=== PATIENT | female | born 1975 | race Caucasian/White ===

== ENCOUNTER → 2017-10-21 16:20 | Outpatient (CLI) | payer OTHER, SELFPAY ==
--- NOTE | 2017-10-21 16:24 | RAD_ITS ---
STUDY: X-RAY - ACUTE ABDOMINAL SERIES REASON FOR EXAM: Female, 42 years old. Abdominal pain. TECHNIQUE: Single view of the chest. Supine, and erect view(s) of the abdomen were obtained. COMPARISON: None. FINDINGS: The lungs are clear and expanded. Normal size heart. Normal mediastinum and sarita. Normal visualized pulmonary arteries. Normal visualized aortic arch and descending thoracic aorta. There is a non-specific bowel gas pattern. Moderate fecal retention. The soft tissue structures of the abdomen and pelvis are unremarkable. Normal visualized osseous structures. RAD/Acute Abdomen Inc Chest IMPRESSION: Normal x-ray examination of the chest, abdomen, and pelvis. Electronically Signed: Giles Gutierrez MD at 9:53 EDT , Service support ,
== END ==
PROVIDERS: Family Provider Family Medicine; PCP Family Medicine; Visit Provider Family Medicine
DX: R10.9 Unspecified abdominal pain (principal)
CPT/HCPCS: 74022

== ENCOUNTER → 2018-05-05 11:08 | Outpatient (CLI) | payer OTHER, SELFPAY ==
--- NOTE | 2018-05-05 11:30 | BRBX_PTH ---
PATIENT: PING HALL LOC: [facility] U#:[id number] AGE/SX: 50/F ROOM: RE05/05/[address]: Dr. Renetta Flores MD : 1975 BED: DIS: SPEC #: [id number] RECD: 05/05/18 13:08 STATUS: CORAL HELGA #: [id number] JAYMIE: 05/05/18 11:[address]: Renetta Flores DEPT: SURGICAL PATHOLOGY RECD BY: David Matute ENTERED: 05/05/18 13:31 SP TYPE: BREAST BX OTHR DR: Dr. Juan Neal MD Tissues: Left breast, NOS Procedures: Surgery Specimen Level IV HEADER OPERATION: Left breast stereotactic biopsy PRE-OP DIAGNOSIS: Left breast calcifications superior lateral position TISSUE SUBMITTED: Left breast core tissue ISCHEMIC TIME: 1 minute FIXATION TIME: 8 hours MICROSCOPIC DIAGNOSIS Left breast, superior lateral calcifications, stereotactic core biopsy: Fibrocystic changes, adenosis and intraductal hyperplasia without atypia. Negative for malignancy. Focal microcalcifications. DANAE:kari 05/06/18 COMMENT Correlation with clinical, radiologic findings and appropriate follow up are necessary. MICROSCOPIC DESCRIPTION Slides are reviewed. GROSS DESCRIPTION Received is one container labeled with the patient's name and not further designated. The specimen consists of multiple elongated fragments of ponce-yellow fibroadipose tissue that in aggregate measure 5 x 3 x 0.3 cm. The entire specimen is submitted in one cassette. / DANAE:kari 05/05/18 TC:4 CPT: 75104
--- NOTE | 2018-05-05 12:52 | PCM.OPRPT ---
Report of Operation Date of Procedure: 05/05/18 Pre-Operative Diagnosis: abnormal calcifications on left breast mammograms Post-Operative Diagnosis: same Surgery/Procedure Performed:: left stereotactic breast biopsy Description of Surgical Findings:: abnormal calcifications of left breast Type of Anesthesia:: Local - 1% xylocaine Anesthesiologist: none Specimen's removed: left breast tissue Estimated Blood Loss (mL): < 1 ml Fluids Replaced: none Description of Procedure: After informed consent was given, the patient was brought into the breast biopsy suite. Appropriate time out protocol was followed. She was then placed in the prone position on the stereotactic biopsy table. The patient?s left breast was then placed within the opening hole at the head of the table. A camera prototyping engineer compression mammogram was then obtained in the lateral view. The abnormal calcifications were localized within the biopsy aperture. Stereo pictures of the lesion were then taken for XYZ coordinates. The Mammotome biopsy stylus was then positioned where it would be entering into the patient?s breast. The skin at this site was then cleansed with a surgical skin preparation. The skin and subcutaneous tissues at this site were then infiltrated with 1% xylocaine. A small skin incision was made with an 11 blade scalpel. The biopsy stylus was then positioned into the patient?s breast at the proper coordinates of depth. Using the Mammotome vacuum-assist device, several core samples of breast tissue were obtained. A specimen mammogram was the obtained and revealed that the calcifications were within the specimen. A hemostatic marker clip was then placed into the biopsy cavity and a camera prototyping engineer film revealed that it was properly deployed. The patient was then placed in the supine position and pressure was applied to the breast until no active bleeding was noted. Steristrips were applied to reapproximate the skin. A unilateral mammogram in the CC and MLO view were then taken which revealed that the marker clip was in the same area as the previous suspicious lesion. The patient tolerated the procedure well and was discharged from the breast biopsy suite in good condition. - Complications none noted
--- NOTE | 2018-05-05 12:56 | OP.PCM_ITS ---
Report of Operation Date of Procedure: 05/05/18 Pre-Operative Diagnosis: abnormal calcifications on left breast mammograms Post-Operative Diagnosis: same Surgery/Procedure Performed:: left stereotactic breast biopsy Description of Surgical Findings:: abnormal calcifications of left breast Type of Anesthesia:: Local - 1% xylocaine Anesthesiologist: none Specimen's removed: left breast tissue Estimated Blood Loss (mL): < 1 ml Fluids Replaced: none Description of Procedure: After informed consent was given, the patient was brought into the breast biopsy suite. Appropriate time out protocol was followed. She was then placed in the prone position on the stereotactic biopsy table. The patient?s left breast was then placed within the opening hole at the head of the table. A coke handling supervisor compression mammogram was then obtained in the lateral view. The abnormal calcifications were localized within the biopsy aperture. Stereo pictures of the lesion were then taken for XYZ coordinates. The Mammotome biopsy stylus was then positioned where it would be entering into the patient?s breast. The skin at this site was then cleansed with a surgical skin preparation. The skin and subcutaneous tissues at this site were then infiltrated with 1% xylocaine. A small skin incision was made with an 11 blade scalpel. The biopsy stylus was then positioned into the patient?s breast at the proper coordinates of depth. Using the Mammotome vacuum-assist device, several core samples of breast tissue were obtained. A specimen mammogram was the obtained and revealed that the calcifications were within the specimen. A hemostatic marker clip was then placed into the biopsy cavity and a coke handling supervisor film revealed that it was properly deployed. The patient was then placed in the supine position and pressure was applied to the breast until no active bleeding was noted. Steristrips were applied to reapproximate the skin. A unilateral mammogram in the CC and MLO view were then taken which revealed that the marker clip was in the same area as the previous suspicious lesion. The patient tolerated the procedure well and was discharged from the breast biopsy suite in good condition. - Complications none noted
== END ==
PROVIDERS: Family Provider Family Medicine; PCP Family Medicine; Referring Provider Surgery; Visit Provider Surgery
DX: N60.22 Fibroadenosis of left breast (principal); N62 Hypertrophy of breast
CPT/HCPCS: 19081; 88305; J7050; A4648

== ENCOUNTER 2019-09-10 13:48 | Day surgery (SDC) | payer OTHER, SELFPAY ==
--- NOTE | 2019-09-10 08:08 | HP.PCM_ITS ---
- Problem List (1) Menorrhagia Status: Acute (2) Endometrial polyp Status: Acute History Date of Admission: 09/10/19 History of this : This is a 44 year-old with a history of menorrhagia with irregular cycle. She h ad a pelvic ultrasound that showed a normal-sized uterus with a 2 cm fibroid, and the relationship of the fibroid with the endometrium was stated to not be clear but it could possibly be submucosal. Her endometrium measured 1.6 cm. She had an endometrial biopsy showing an endometrial polyp and non-polyp benign proliferative endometrium. A Mirena IUD was unable to be placed in the office due to significant cervical stenosis. She desired Mirena IUD placement for menorrhagia. Medical History: Medical History (Last Updated 09/10/19 @ 08:10 by Josy Matos DO) History of drainage of abscess Z98.890 IBS (irritable bowel syndrome) K58.9 Surgical History: Surgical History (Last Updated 09/10/19 @ 08:10 by Josy Matos DO) History of appendectomy Z90.49 History of breast biopsy Z98.890 History of colonoscopy Z98.890 History of tubal ligation Z98.51 Allergies latex Allergy (Verified 09/04/19 09:59) Rash Home Medications: Home Medications Omeprazole [Prilosec] 20 mg PO PRN PRN 09/04/19 Venlafaxine XR [Effexor Xr] 215 mg PO DAILY 09/04/19 Smoking Status: Current every day smoker History Past Pregnancies: Past Pregnancies Delivery Date Name GA/ Weeks Outcome Route Wt Sex Labor Length Anesthesia Delivery Location Provider FOB Review of Systems Constitutional: Denies: Anorexia, Chills, Fever Eyes: Denies: Blurred vision HEENT: Denies: Head Aches, Hearing Changes Cardiovascular: Denies: Chest Pain Respiratory: Denies: Cough, Shortness of Breath Gastrointestinal: Denies: Abdominal Pain, Nausea, Vomiting Genitourinary: Denies: Dysuria Gynecological: Denies: Breast symptoms Neurological: Denies: Blurred vision, Double vision, Change in Speech Hematologic/ Lymphatic: Denies: Easy Bruising, Easy Bleeding Physical Exam General: Alert, No apparent distress HEENT: Atraumatic Cardiovascular: Regular rate Lungs: Clear to auscultation Abdomen: Soft, Non Tender, Non-Distended Extremities:: No edema Neurological: Neuro grossly intact RETAIL SHIFT LEADER: Normal external genitalia Assessment/Plan All Active Problems Menorrhagia (Acute) Endometrial polyp (Acute) This is a 44 year-old with menorrhagia with irregular cycle. Pelvic ultrasound showed a possible submucosal fibroid. Endometrial biopsy showed a polyp. Significant cervical stenosis was noted in the office. All medical and surgical options for treatment of menorrhagia were discussed including risks and benefits. She desires a Mirena IUD to be placed. Reviewed risks, benefits, alternatives to a: hysteroscopy, polypectomy, possible fibroid removal, possible D&C, Mirena IUD placement and she desires to proceed with the surgery. Consent was obtained.
[2019-09-10 14:12] VITALS: BP 117/78; PULSE 92; RESP 16; TEMP 37.4; O2SAT 95; BMI 308.2
[2019-09-10] MEDS: Lactated Ringers 1,000 ML 100 ML IV (14:19)
[2019-09-10 14:29] LABS: Hematocrit 42.9 % (37-47); Hemoglobin 14.1 g/dL (12.0-15.0); Mean Corp Hgb Conc 32.9 g/dL (32-36); Mean Corpuscular Hgb 30.3 pg (27.0-32.0); Mean Corpuscular Volume 92.1 fL (81-99); Platelet Count 430 K/mm3 (150-450); RBC Distribution Width CV 14.3 % (11.6-14.6); RBC Distribution Width SD 48.1 fl (35.1-43.9); Red Blood Count 4.66 M/mm3 (4.2-5.4); White Blood Count 9.9 K/mm3 (4.4-11.0)
--- NOTE | 2019-09-10 15:10 | EMB_PTH ---
PATIENT: PING HALL LOC: [facility] U#:[id number] AGE/SX: 44/F ROOM: RE09/10/[address]: Dr. Josy Matos DO : 1975 BED: DIS: 09/10/2019 SPEC #: [id number] RECD: 09/11/19 10:38 STATUS: CORAL HELGA #: [id number] JAYMIE: 09/10/19 15:[address]: Josy Matos DEPT: SURGICAL PATHOLOGY RECD BY: Sweta Chavez ENTERED: 09/11/19 11:13 SP TYPE: ENDOM BX/C WILNER DR: Dr. Juan Neal MD Tissues: Endometrium, NOS Procedures: Surgery Specimen Level IV HEADER OPERATION: Hysteroscopy, polypectomy, fibroid removal, Mirena IUD placement PRE-OP DIAGNOSIS: Menorrhagia, endometrial polyp TISSUE SUBMITTED: Endometrial curettings MICROSCOPIC DIAGNOSIS Endometrium, curettings: Secretory endometrium. AM:kari 09/14/19 MICROSCOPIC DESCRIPTION Slides are reviewed. GROSS DESCRIPTION Received in fixative is one container labeled with the patient's name and designated endometrial curettings. The specimen consists of multiple irregular fragments of red-ponce soft tissue that in aggregate measure 6 x 5 x 0.2 cm. The specimen is totally submitted in three cassettes. / AM:kari 09/11/19 TC:5 CPT: 34817
[2019-09-10 15:59] LABS: Internal QC Validated? YES +Cl - CLEAR BKGD; Pregnancy, Urine Negative Negative
--- NOTE | 2019-09-10 16:35 | DCINST_ITS ---
Discharge Diet: No Restrictions Discharge Activity: May Drive - 24 hours after your surgery, May Shower May resume sexual activity in: 4 weeks Weight Bearing Status: Weight bearing as tolerated Lifting Restrictions: None Additional Activity Instructions:: Do not use tampons for 1 week. No hot tubs or tub baths for 1 week as well. Call your doctor if you observe: Fever of 101 or Higher, Inability to urinate, I nability to have a bowel movement, Using more than one pad per hour, Shortness of breath, Dizziness, Chest pain, Increased palpitations (irregular heartbeat), Calf discomfort, Uncontrolled pain Allergies/Adverse Reactions: Allergies latex Allergy (Verified 09/04/19 09:59) Rash sulfamethoxazole [From Bactrim] Allergy (Verified 09/10/19 14:11) Rash trimethoprim [From Bactrim] Allergy (Verified 09/10/19 14:11) Rash citalopram Adverse Reaction (Verified 09/10/19 14:11) Unknown Medications to take at Discharge Omeprazole [Prilosec] 20 mg PO PRN PRN 09/04/19 Venlafaxine XR [Effexor Xr] 215 mg PO DAILY 09/04/19 Orders to be completed after discharge: Type & Screen Time Frame: 09/10/19, Facility: [facility], Location: Laboratory Primary Care Physician: Juan Neal MD [Primary Care Provider] - Test Results: Test results from this visit will be discussed in further detail at your follow- up appointment, if applicable. Please Follow Up With: Josy Matos DO When: 1-2 weeks
--- NOTE | 2019-09-10 16:38 | OP.PCM_ITS ---
Problem List (1) Menorrhagia Status: Acute (2) Endometrial polyp Status: Acute Report of Operation Date of Procedure: 09/10/19 Pre-Operative Diagnosis: Menorrhagia, endometrial polyp, desires Mirena IUD, cervical stenosis Post-Operative Diagnosis: As above Surgery/Procedure Performed:: Hysteroscopy, dilation and curettage, Mirena IUD placement Description of Surgical Findings:: Normal-appearing uterine cavity without any obvious polyps or fibroids noted. The endometrium was very thick and fluffy appearing, and the tissue was polypoid appearing after the D&C was performed. Good descent of uterus and cervix. Type of Anesthesia:: MAC Special Medications: None Specimen's removed: Endometrial curettings Drains: None Estimated Blood Loss (mL): 10 Description of Procedure: The patient was taken to the operating room where MAC anesthesia was found to be adequate. She was prepped and draped in the dorsal lithotomy position using yellowfin stirrups. Her bladder was drained with a straight catheter. A weighted speculum was placed in the vagina exposing the cervix. A single-tooth tenaculum was placed on the anterior lip of the cervix. The cervix was serially dilated to accommodate the hysteroscope. The cervix was noted to be significantly stenotic with a curve to the cervix. The hysteroscope was advanced to the fundus of the uterus and the uterus was distended with normal sa line. No polyps or fibroids were noted. The endometrium was very thick and fluffy appearing. The hysteroscope was then removed and the uterus. A sharp curettage was performed for a large amount of tissue and the specimen was sent to pathology for review. The uterus was sounded to 10 cm. A Mirena IUD was placed and the strings were cut to 2 cm in length. Bleeding was hemostatic. All instruments were removed from the vagina. Instrument counts were correct. The patient was taken to the recovery room in stable condition. Grafts/Implants Used: Mirena IUD - Complications None - Admit VTE Documentation VTE Present on Admission: No VTE Mechan Device Prophylaxis: SCD's
[2019-09-10 16:40] VITALS: BP 111/78; BP 117/78; PULSE 88; RESP 16; TEMP 36.6; O2SAT 94
[2019-09-10 16:45] VITALS: BP 113/76; BP 117/78; PULSE 89; RESP 16; O2SAT 95
[2019-09-10 16:50] VITALS: BP 110/75; BP 117/78; PULSE 87; RESP 16; O2SAT 97
[2019-09-10 16:55] VITALS: BP 113/75; BP 117/78; PULSE 87; RESP 16; TEMP 36.9; O2SAT 96
[2019-09-10 17:37] VITALS: BP 117/78
== END 2019-09-10 17:43 | disposition home or self-care (01) ==
LOC: SDC 13:50 → AC 13:53
PROVIDERS: PCP Family Medicine; Referring Provider Obstetrics & Gynecology; Visit Provider Obstetrics & Gynecology
PROC: 0UB98ZZ Excision of Uterus, Via Natural or Artificial Opening Endoscopic (ICD-10-PCS; CPT 58558; principal; 2019-09-10 14:55)
DX: N84.0 Polyp of corpus uteri (principal); Z30.430 Encounter for insertion of intrauterine contraceptive device; N92.0 Excessive and frequent menstruation with regular cycle; K58.9 Irritable bowel syndrome, unspecified; K21.9 Gastro-esophageal reflux disease without esophagitis; F32.9 Major depressive disorder, single episode, unspecified; F41.9 Anxiety disorder, unspecified; F17.200 Nicotine dependence, unspecified, uncomplicated; Z91.040 Latex allergy status; Z79.899 Other long term (current) drug therapy; Z98.51 Tubal ligation status
CPT/HCPCS: 58300; 58558; 36415; 81025; 85027; 86850; 86900; 86901; 88305; J7120; J2405

== ENCOUNTER 2021-08-21 14:33 | Outpatient (CLI) | payer OTHER, SELFPAY | END 2021-08-21 23:59 | disposition short-term general hospital (02) | LOC: LABSPEC 14:33 | PROVIDERS: PCP Family Medicine; Visit Provider Physician Assistant Surgical | DX: Z11.52 Encounter for screening for COVID-19 (principal) | CPT/HCPCS: 87635; U0003; U0005 ==

== ENCOUNTER → 2022-09-04 | Outpatient (CLI) | payer OTHER, SELFPAY ==
[2022-09-04 18:15] LABS: Erythrocyte Sedimentation Rate 5 mm/hr (0-30)
[2022-09-04 18:18] LABS: Absolute Lymphocyte Count 4.16 X10^3/uL (0.83-4.51); Absolute Neutrophil Count 4.9 X10^3/uL (2.0-7.7); Basophil# 0.05 X10^3/uL; Basophil% 0.5 % (0-1); Eosinophil# 0.16 X10^3/uL; Eosinophils% 1.6 % (0-5); Hematocrit 45.6 % (37-47); Hemoglobin 14.9 g/dL (12.0-15.0); Lymphocyte # 4.16 X10^3/ul (0.83-4.51); Lymphocyte % 42.5 % (19-41); Mean Corp Hgb Conc 32.7 g/dL (32-36); Mean Corpuscular Volume 91.9 fL (81-99); Mean Platelet Vol. 10.9 fl (6.2-12.0); Monocyte% 5.1 % (0-10); NRBC Flagged by Analyzer 0.3 % (0-5); Neutrophil % 50.1 % (47-70); Platelet Count 422 K/mm3 (150-450); RBC Distribution Width CV 13.8 % (11.6-14.6); Red Blood Count 4.96 M/mm3 (4.2-5.4); White Blood Count 9.8 K/mm3 (4.4-11.0)
[2022-09-04 18:47] LABS: ALB/GLOB Ratio 1.1 RATIO (0.9-2.4); AST(SGOT) 24 U/L (15-37); Alanine Aminotransfer ALT/SGPT 43 U/L (13-56); Alkaline Phosphatase 87 U/L (45-117); Anion Gap 6 (5-15); BUN 10 mg/dL (7-18); BUN/Creat Ratio 13.9 RATIO (10-20); CRP 7.67 mg/L (0.0-3.0); Calcium,Total 9.8 mg/dL (8.5-10.1); Chloride 104 mmol/L (98-107); Creatinine, Serum 0.72 mg/dL (0.55-1.02); EST Glomerular Filtration Rate 92 mL/min (>60); Est Glom Filt Rate - Afr Amer 112 mL/min (>60); Globulin 3.5 g/dL (2.2-4.2); Glucose 77 mg/dL (74-106); Lipase 90 U/L (73-393); Potassium 4.7 mmol/L (3.5-5.1); Protein, Total 7.5 g/dL (6.4-8.2); Sodium Level 139 mmol/L (136-145)
== END | disposition home or self-care (01) ==
LOC: BFHLAB 16:15
PROVIDERS: PCP Family Medicine; Visit Provider Family Medicine
DX: R10.9 Unspecified abdominal pain (principal)
CPT/HCPCS: 36415; 80053; 83690; 85025; 85652; 86140

== ENCOUNTER → 2022-09-14 | Outpatient (CLI) | payer OTHER, SELFPAY ==
--- NOTE | 2022-09-14 11:02 | US_ITS ---
STUDY: ABDOMINAL ULTRASOUND - RIGHT UPPER QUADRANT REASON FOR VISIT: Female, 47 years old . Several year history of right upper quadrant pain. TECHNIQUE: Ultrasound evaluation of the right upper quadrant was performed with real-time and static flores-scale imaging. TECHNICAL QUALITY: Adequate. COMPARISON: None. FINDINGS: Liver: The liver measures 16.3 cm. There is increased echogenicity consistent with fatty infiltration. The bile ducts are within normal limits. There is hepatic color flow. The direction of portal flow is hepatopetal. There is no demonstrated mass lesion. Gallbladder: Normal distended gallbladder. The gallbladder wall measures 2 mm. There is a negative sonographic Page''s sign. There is no pericholecystic fluid. There are no gallstones. Common Bile Duct (C.B.D.): The common bile duct measures 6 mm. Pancreas: Normal size of the head, body and tail of the pancreas. There is normal echogenicity of the pancreas. There is no demonstrated pancreatic mass or cyst. Right Kidney: Normal size of the right kidney. The right kidney measures 11.4 cm x 4.2 cm x 4.3 cm. Normal renal cortex. The right cortex measures 1.3 cm. There is no demonstrated renal mass or cyst. There is no right hydronephrosis. US/Abdomen Limited IMPRESSION: Fatty infiltration of the liver. Electronically Signed: Estiven Vang MD at 14:21 EST ,
== END | disposition home or self-care (01) ==
LOC: US 11:01
PROVIDERS: PCP Family Medicine; Referring Provider Family Medicine; Visit Provider Family Medicine
DX: R10.11 Right upper quadrant pain (principal); R10.13 Epigastric pain
CPT/HCPCS: 76705

== ENCOUNTER → 2023-02-13 | Outpatient (CLI) | payer OTHER, SELFPAY ==
--- NOTE | 2023-02-13 13:44 | RAD_ITS ---
STUDY: X-RAY CHEST REASON FOR EXAM: Female, 47 years old. Back pain. TECHNIQUE: Frontal and lateral views of the chest. COMPARISON: None. FINDINGS: The lungs are clear and expanded. There is no demonstrated pleural abnormality. Normal size heart. Normal mediastinum and sarita. Normal visualized pulmonary arteries. Normal visualized aortic arch and descending thoracic aorta. Normal visualized thoracic spine. Normal visualized ribs, clavicles, and shoulders. No abnormality of the visualized soft tissue structures of the upper abdomen. RAD/Chest PA and Lateral IMPRESSION: No active or acute cardiopulmonary disease. Electronically Signed: Miki John MD at 14:29 EDT ,
== END | disposition home or self-care (01) ==
LOC: MTRAD 13:42
PROVIDERS: PCP Family Medicine; Referring Provider Nurse Practitioner Family; Visit Provider Nurse Practitioner Family
DX: M54.6 Pain in thoracic spine (principal)
CPT/HCPCS: 71046

== ENCOUNTER 2024-04-23 11:48 | Emergency (ER) | payer OTHER, SELFPAY ==
[2024-04-23 11:48] VITALS: BP 126/83; PULSE 88; RESP 14; TEMP 36.6; O2SAT 96
--- NOTE | 2024-04-23 13:23 | EX.ED.DYSGE1 ---
HPI History of Present Illness Chief Complaint: Allergic Reaction PFSH PFS Medical History Endometrial polyp History of drainage of abscess Hx of ulcerative colitis IBS (irritable bowel syndrome) Menorrhagia Home Medications ?Medication ?Instructions ?Recorded ?Last Taken ?Type venlafaxine 150 mg 215 mg PO DAILY depresion 09/04/19 04/23/24 History capsule,extended release 24 hr Allergy/AdvReac Type Severity Reaction Status Date / Time latex Allergy Rash Verified 04/23/24 11:48 sulfamethoxazole (From Allergy Rash Verified 04/23/24 11:48 Bactrim) trimethoprim (From Bactrim) Allergy Rash Verified 04/23/24 11:48 citalopram AdvReac Unknown Verified 04/23/24 11:48 Surgical History History of appendectomy History of breast biopsy History of colonoscopy History of tubal ligation Social History Smoking Status: Current every day smoker tobacco type: cigarettes EXAM Physical Exam Const Vital Signs: 04/23/24 11:48 Temperature 98 F Temperature Source Temporal Pulse Rate 88 Respiratory Rate 14 Blood Pressure 126/83 H Blood Pressure Mean 97 Pulse Ox 96 Oxygen Delivery Method Room Air [facility] MDM Narrative Medical decision making narrative: HISTORY OF PRESENT ILLNESS: 48-year-old female presents with left upper arm bee sting. Notes this occurred greater than 1 hour prior to arrival. Denies shortness of breath, airway compromise. Denies abdominal pain vomiting or wheezing. REVIEW OF SYSTEMS: Pertinent positives: Bee sting Pertinent negatives: As per HPI PHYSICAL EXAM: Nursing triage notes reviewed, Vital signs reviewed Constitutional: please see mdm HENT: MMM Eyes: Pupils equal round and reactive to light, Extraocular muscles intact Neck: No stridor, no JVD, full neck ROM Lungs: Clear to auscultation, No wheezing or rales. No increased work of breathing, no conversational dyspnea, no accessory muscle use, no nasal flaring. No respiratory distress noted Heart: Regular rate and rhythm, No murmurs, No rubs and No gallops, 2+ distal pulses (radial, femoral, posterior tibial) in all extremities Abdomen: Soft, there is no tenderness, rigidity, rebound or guarding, no obvious peritoneal signs, no palpable pulsatile abdominal masses, no auscultated abdominal bruit : No CVAT Extremities: No edema Neuro: No focal neurological deficits, cranial nerves II through XII intact, 5/5 strength in all extremities. Intact sensation to light touch in all extremities, 2+ reflexes bilateral patella tendons. Normal gait. No ataxia. Skin: Erythematous welt like lesion noted to the left medial upper arm. No surrounding erythema, no fluctuance or induration,. MEDICAL DECISION MAKING: Chief Complaint: Bee sting External records reviewed: Allergies reviewed Factors affecting care: Bee allergy [facility] Narrative: Patient was initially hemodynamically stable, afebrile and nontoxic-appearing. Exam without trismus, drooling, posterior oropharyngeal swelling, signs of anaphylaxis or anaphylactic shock I considered the following differential diagnosis: Local histamine reaction, allergic reaction, anaphylaxis, anaphylactic shock No signs of anaphylaxis or anaphylactic shock. Exam most consistent with local histamine reaction. Patient was given Pepcid, Benadryl and Solu-Medrol empirically. Was prescribed Pepcid, Benadryl and prednisone. EpiPen prescribed as well. The patient and/or family, caregivers express understanding. The patient and/or family, caregivers agrees with the plan. Shared decision making: I will have a discussion with the patient and or visitors regarding risk/benefits of further testing or admission. They will be made aware of of the risk/benefits inherent in this decision they will be given the opportunity to voice understanding. Total critical care time today provided was at least 0 minutes. This excludes separately billable procedures. Critical care time (if documented) is secondary to the patient having high probability of clinically significant/life threatening deterioration in the patient's condition which required my urgent intervention. Impression: 1. Allergic reaction 2. Bee sting Dispo: Discharge home This note was generated with [employer] dictation software. It may contain incorrect words, spelling, and punctuation that were not noted in review of the chart prior to signing. Discharge Plan Triage Chief Complaint: Allergic Reaction ED Provider: Jatin Morrow Dx/Rx/DC Orders Prescriptions: No Action venlafaxine 150 MG capsule 215 mg PO DAILY Primary Care Provider: Stephen Lucero Referrals: Stephen Lucero DO [Primary Care Provider] - Print Language: Ukrainian
[2024-04-23] MEDS: MethylPREDNISolone 125 MG/2 ML Vial IV (13:44)
[2024-04-23] MEDS: DiphenhydrAMINE 50 MG/ML Syringe 25 MG IV (13:45)
[2024-04-23] MEDS: Famotidine 200 MG/20 ML MDV 20 MG in 0.9% Normal Saline (Pres. free 8 ML 300 MG IV (14:23)
[2024-04-23 14:44] VITALS: BP 146/86; PULSE 106; RESP 16; TEMP 37.1; O2SAT 98
== END 2024-04-23 14:45 | disposition home or self-care (01) ==
LOC: ED 14:06
PROVIDERS: Emergency Provider Emergency Medicine; PCP Family Medicine; Visit Provider Emergency Medicine
DX: T63.444A Toxic effect of venom of bees, undetermined, initial encounter (principal); F17.210 Nicotine dependence, cigarettes, uncomplicated; Z79.899 Other long term (current) drug therapy
CPT/HCPCS: 96374; 96375; 99283; J7050; A4216; J3490

== ENCOUNTER → 2024-10-22 | Outpatient (CLI) | payer OTHER, SELFPAY ==
[2024-10-24 06:08] LABS: QNTFERON TB Mitogen Value > 10.00 IU/mL (.); QNTFERON TB Nil Value 0.01 IU/mL (.); QNTFERON TB1+ Ag Value 0.01 IU/mL (.); QNTFERON TB2+ Ag Value 0 IU/mL (.); QNTIFERON TB Positive Criteria Negative (Negative)
== END | disposition home or self-care (01) ==
LOC: MTLAB 16:39
PROVIDERS: PCP Family Medicine; Referring Provider Physician Assistant Medical; Visit Provider Physician Assistant Medical
DX: L40.0 Psoriasis vulgaris (principal); Z79.899 Other long term (current) drug therapy; L71.8 Other rosacea; L85.8 Other specified epidermal thickening
CPT/HCPCS: 36415; 86480

== ENCOUNTER 2025-01-27 14:04 | Emergency (ER) | payer OTHER, SELFPAY ==
[2025-01-27 14:05] VITALS: BP 132/82; PULSE 110; RESP 15; TEMP 36.6; O2SAT 99; BMI 32.8
[2025-01-27 14:49] LABS: Absolute Lymphocyte Count 3.72 X10^3/uL (0.83-4.51); Absolute Neutrophil Count 8.7 X10^3/uL (2.0-7.7); Basophil# 0.07 X10^3/uL; Basophil% 0.5 % (0-1); Eosinophil# 0.16 X10^3/uL; Eosinophils% 1.2 % (0-5); Hematocrit 43.5 % (37-47); Hemoglobin 14.7 g/dL (12.0-15.0); Lymphocyte # 3.72 X10^3/ul (0.83-4.51); Lymphocyte % 27.4 % (19-41); Mean Corp Hgb Conc 33.8 g/dL (32-36); Mean Corpuscular Volume 91.8 fL (81-99); Mean Platelet Vol. 9.8 fl (6.2-12.0); Monocyte# 0.84 X10^3/uL; Monocyte% 6.2 % (0-10); NRBC Flagged by Analyzer 0 % (0-5); Neutrophil # 8.73 X10^3/uL (2.7-7.7); Neutrophil % 64.3 % (47-70); Platelet Count 444 K/mm3 (150-450); RBC Distribution Width CV 13.9 % (11.6-14.6); RBC Distribution Width SD 47.1 fl (35.1-43.9); Red Blood Count 4.74 M/mm3 (4.2-5.4); White Blood Count 13.6 K/mm3 (4.4-11.0)
[2025-01-27 15:06] LABS: Internal QC Validated? YES +Cl - CLEAR BKGD; Pregnancy, Serum, hCG Quali. NEGATIVE Negative
[2025-01-27 15:25] LABS: Lipase 38 U/L (13-75)
[2025-01-27 15:49] LABS: ALB/GLOB Ratio 1.5 RATIO (0.9-2.4); AST(SGOT) 34 U/L (<=31); Alanine Aminotransfer ALT/SGPT 19 U/L (<=34); Albumin, Serum 4.1 g/dL (3.5-5.0); Alkaline Phosphatase 90 U/L (35-104); Anion Gap 11 (5-15); BUN 10 mg/dL (4-19); BUN/Creat Ratio 14.4 RATIO (10-20); Calcium,Total 8.8 mg/dL (7.6-11.0); Carbon Dioxide 22.2 mmol/L (21.0-32.0); Chloride 102 mmol/L (98-108); Creatinine, Serum 0.72 mg/dL (0.70-1.20); EST Glomerular Filtration Rate 102 (>60); Estimated Creatinine Clearance 104.36 ml/min (50-250); Globulin 2.8 g/dL (2.2-4.2); Glucose 110 mg/dL (70-99); Potassium 5.2 mmol/L (3.3-5.1); Protein, Total 6.8 g/dL (5.9-8.4); Sodium Level 136 mmol/L (133-145); Total Bilirubin 0.23 mg/dL (0.00-1.30)
[2025-01-27 16:42] VITALS: BP 126/103; PULSE 85; RESP 16; O2SAT 98
--- NOTE | 2025-01-27 17:39 | CT_ITS ---
PROCEDURE: ABDOMEN/PELVIS W IV CONT ONLY 01/27/2025 REASON FOR EXAM: ABDOMINAL PAIN TECHNIQUE: ABDOMEN/PELVIS W IV CONT ONLY Coronal and Sagittal reconstruction series were provided. CONTRAST: Isovue 370 VOLUME: 70 mL One or more dose reduction techniques were used (e.g., Automated exposure control, adjustment of the mA and/or kV according to patient size, use of iterative reconstruction technique. RADIATION DOSE SUMMARY: DLP: 1000 mGycm COMPARISON: Limited abdominal ultrasound 09/14/2022. FINDINGS: Lung bases: Tiny bilateral pulmonary nodules (for example within the right lower lobe series 2, image 8). Liver: The liver is normal in size without obvious hepatic mass. The major portal veins are patent. No biliary ductal dilation. Gallbladder: No radiopaque stones within the gallbladder. Spleen: Normal in size. Pancreas: Unremarkable. Adrenals: No adrenal mass. Kidneys: No hydronephrosis or nephrolithiasis. Bladder: Decompressed. Reproductive Organs: An IUD is present. Adnexal regions are unremarkable. Bowel: The bowel loops are nondilated. No ascites or pneumoperitoneum. Prior appendectomy. Lymph nodes: No suspicious lymph node enlargement. Vasculature: The abdominal aorta and IVC are normal. Bones: Thoracolumbar spondylosis. Tiny fat containing umbilical hernia. CT/Abdomen/Pelvis W IV Cont ONLY IMPRESSION: 1. No acute abdominopelvic finding. 2. Tiny bilateral pulmonary nodules, likely noncalcified granulomas or scarring . If patient has a history of smoking, recommend CT chest in 6-12 months to evaluate for stability. Reading Location: [id number]
[2025-01-27 17:53] VITALS: BP 135/69; PULSE 87; RESP 14; O2SAT 98
--- NOTE | 2025-01-27 17:58 | EDS_ITS ---
HPI History of Present Illness Chief Complaint: Abd Pain Narrative Narrative: Chief complaint and HPI: Abdominal pain. 49-year-old female with past medical history of depression, IBS, ulcerative colitis presents for evaluation of abdominal pain. Patient states that for several years she has been having intermittent abdominal pain. She describes the abdominal pain as tightening. She states when she develops it, the associated symptoms are nausea and vomiting as well as diarrhea. Patient states that it happened earlier this morning but is already improving. She states that she has not had any imaging for this. She does not follow with a GI physician. She states she has periodically been on GERD medication. Does endorse some acid reflux currently. She denies any fever, chills, chest pain, shortness of breath, dysuria, hematuria. Patient has a history of ulcerative colitis but states that it is well-controlled without any medication. She states her last colonoscopy was approximately 5 years ago in which it was unremarkable without signs of ulcerative colitis. She does not remember who performed her colonoscopy. Review of systems: See HPI Medications: As listed on the chart Allergies: As listed on the chart PFSH: Per chart Vital signs: As listed on the chart. Reviewed. Physical exam: Gen: A&O x3, NAD Head: Normocephalic, atraumatic Eyes: No sclera icterus, conjunctiva clear ENT: Moist mucous membranes Neck: Trachea midline, No JVD CV: RRR, no murmurs, no peripheral edema Resp: Lungs CTA BL, no w/r/c GI: Abd soft, non-distended, mild tenderness to palpation in the epigastrium, no r/r/g : No CVA tenderness Musc: Full ROM, no deformity Skin: Warm, dry Neuro: Alert, oriented, grossly intact, sensation intact Psych: Cooperative, appropriate mood and affect [facility] Medical History Endometrial polyp History of drainage of abscess Hx of ulcerative colitis IBS (irritable bowel syndrome) Menorrhagia Home Medications ?Medication ?Instructions ?Recorded ?Last Taken ?Type venlafaxine 150 mg 215 mg PO DAILY depresion 04/23/24 History capsule,extended release 24 hr epinephrine 0.3 mg/0.3 mL 0.3 mg (0.3 mL) IM X1 #2 ea 09/19/24 Unknown Rx injection, auto-injector (EpiPen 2-Daniel) prednisone 20 mg tablet 20 mg PO DAILY #5 tabs 04/23 Unknown Rx buspirone 7.5 mg tablet 7.5 mg PO BID #60 tabs 01/13 Unknown Rx lorazepam 0.5 mg tablet 0.5 mg PO QDAY PRN 01/13/25 Unknown History phentermine 37.5 mg tablet 37.5 mg PO QAM 01/13/25 Unk nown History risankizumab-rzaa 150 mg/mL mg subcut 01/13/25 Unknown History subcutaneous pen injector (Skyrizi) Allergy/AdvReac Type Severity Reaction Status Date / Time bee venom protein (honey Allergy Severe Swelling Verified 01/27/25 14:07 bee) (bee sting) Penicillins (PCN) Allergy Mild Hives Verified 01/27/25 14:07 latex Allergy Rash Verified 01/27/25 14:07 sulfamethoxazole (From Allergy Rash Verified 01/27/25 14:07 Bactrim) trimethoprim (From Bactrim) Allergy Rash Verified 01/27/25 14:07 citalopram AdvReac Unknown Verified 01/27/25 14:07 Surgical History History of appendectomy History of breast biopsy History of colonoscopy History of tubal ligation Social History Smoking Status: Current every day smoker tobacco type: cigarettes EXAM Physical Exam Const Vital Signs: 01/27/25 14:05 01/27/25 16:42 01/27/25 17:53 Temperature 97.8 F Temperature Source Oral Pulse Rate 110 H 85 87 Respiratory Rate 15 16 14 Blood Pressure 132/82 H 126/103 H 135/69 H Blood Pressure Mean 98 110 91 Pulse Ox 99 98 98 Oxygen Delivery Method Room Air Room Air Room Air 01/27/25 18:35 01/27/25 18:45 01/27/25 19:00 Temperature Temperature Source Pulse Rate 82 Respiratory Rate 12 Blood Pressure 118/72 129/75 H Blood Pressure Mean 88 91 Pulse Ox 99 98 98 Oxygen Delivery Method Room Air MDM MDM MDM Narrative Medical decision making narrative: 49-year-old female with past medical history of depression, IBS, ulcerative colitis presents for evaluation of abdominal pain. Patient states that for several years she has been having intermittent abdominal pain. She describes the abdominal pain as tightening. She states when she develops it, the associated symptoms are nausea and vomiting as well as diarrhea. Abdominal pain is already improving. Differential diagnosis includes but is not limited to GERD, gastritis, PUD, pancreatitis, IBS, UTI, colitis. On chart review, patient had an abdominal ultrasound in September that showed fatty infiltration of the liver but otherwise was unremarkable. She has never had CT abdomen pelvis. There is no notes for colonoscopies. Pepcid, NS bolus ordered for symptoms. Abdominal pain workup ordered including CT abdomen and pelvis. CBC with mild leukocytosis of 13.6. No anemia. Platelets unremarkable. CMP relatively unremarkable except for mild hyperkalemia 5.2 however this is hemolyzed. No LYNN. Patient has AST transaminitis of 34. ALT unremarkable. Bilirubin unremarkable. Lipase unremarkable. Serum negative. UA negative for UTI. CT abdomen pelvis shows no acute intra-abdominal pathology. Patient has tiny bilateral pulmonary nodules, likely noncalcified granulomas or scarring however recommend repeat CT chest in 6 to 12 months to evaluate for stability. IUD is present. Tiny fat-containing umbilical hernia. On reevaluation, patient states her symptoms have resolved. At this point in time, no clear etiology for her symptoms. Recommend follow-up with PCP and GI. Return precautions explained. She confirmed understand the plan. Patient stable to discharge home. Impression: 1. Abdominal pain 2. History of UC 3. Incidental pulmonary nodules Lab Data Labs: Laboratory Results - last 24 hr 01/27/25 01/27/25 14:38 18:30 WBC 13.6 H RBC 4.74 Hgb 14.7 Hct 43.5 MCV 91.8 MCH 31.0 MCHC 33.8 RDW Std Deviation 47.1 H RDW Coeff of Beth 13.9 Plt Count 444 MPV 9.8 Immature Gran % (Auto) 0.400 Neut % (Auto) 64.3 Lymph % (Auto) 27.4 [place] % (Auto) 6.2 Eos % (Auto) 1.2 Baso % (Auto) 0.5 Absolute Neuts (auto) 8.7 H Absolute Lymphs (auto) 3.72 Nucleated RBC % 0 Sodium 136 Potassium 5.2 H Chloride 102 Carbon Dioxide 22.2 Anion Gap 11 BUN 10 Creatinine 0.72 Estim Creat Clear Calc 104.36 Est GFR (MDRD) Non-Af 102 BUN/Creatinine Ratio 14.4 Glucose 110 H Calcium 8.8 Total Bilirubin 0.23 AST 34 H ALT 19 Alkaline Phosphatase 90 Total Protein 6.8 Albumin 4.1 Globulin 2.8 Albumin/Globulin Ratio 1.5 Lipase 38 Serum , Qual NEGATIVE Urine Color Yellow Urine Clarity Clear Urine pH 7.0 Ur Specific [place] 1.015 Urine Protein 15 H Urine Glucose (UA) Normal Urine Ketones Negative Urine Occult Blood Negative Urine Nitrite Negative Urine Bilirubin Negative Urine Urobilinogen 1 H Ur Leukocyte Esterase 25 H Urine RBC 0-5 SEEN Urine WBC 0-5 SEEN Ur Squamous Epith Cells 0-5 SEEN Urine Bacteria 0 SEEN Urine Mucus 0 SEEN Radiography Diagnostic Testing: Clinical Impression(s) from Imaging Studies Abdomen/Pelvis CT 01/27/25 17:39 IMPRESSION: 1. No acute abdominopelvic finding. 2. Tiny bilateral pulmonary nodules, likely noncalcified granulomas or scarring. If patient has a history of smoking, recommend CT chest in 6-12 months to evaluate for stability. Reading Location: [facility] Discharge Plan Triage Chief Complaint: Abd Pain ED Provider: Amish Kenny Dx/Rx/DC Orders Clinical Impression: Abdominal pain Instructions: ED Abdominal Pain Unkn Cause Fem Prescriptions: No Action buspirone 7.5 mg tablet 7.5 mg PO BID Qty: 60 1RF phentermine 37.5 mg tablet 37.5 mg PO QAM lorazepam 0.5 mg tablet 0.5 mg PO QDAY PRN Skyrizi 150 mg/mL pen injector subcut Patient Comments: [NO ORIGINAL SIG] venlafaxine 150 MG capsule 215 mg PO DAILY prednisone 20 mg tablet 20 mg PO DAILY Qty: 5 0RF epinephrine [EpiPen 2-Daniel] 0.3 mg/0.3 mL auto-injector 0.3 mg IM X1 Qty: 2 0RF Rx Instructions: for 2 doses Stand Alone Forms: ED Work / School Excuse Primary Care Provider: Stephen Lucero Referrals: Stephen Lucero DO [Primary Care Provider] - 3-5 Days Friend,DO Jason [Med Staff - Active Staff] - 3-5 Days Activity Restrictions/Additional Instructions: Recommend following up with your primary care physician as well as GI physician. Return back to the ED if symptoms change or worsen. Your CT abdomen pelvis showed tiny bilateral pulmonary nodules, likely noncalcified granulomas or scarring. Recommend CT chest in 6 to 12 months for reevaluation. Print Language: Kyrgyz Disposition Disposition: Home, Self Care Discharge Date/Time: 01/27/25 20:40
[2025-01-27] MEDS: 0.9% Normal Saline (1000mL) 1,000 ML 999 ML IV (18:04)
[2025-01-27] MEDS: Famotidine 200 MG/20 ML MDV 20 MG in 0.9% Normal Saline (Pres. free 8 ML 300 MG IV (18:04)
[2025-01-27 18:35] VITALS: O2SAT 99
[2025-01-27 18:35] LABS: Bacteria 0 SEEN /hpf (None Seen); Mucous, Urine 0 SEEN /hpf (<or=2+)
[2025-01-27 18:45] VITALS: BP 118/72; O2SAT 98
[2025-01-27 18:47] LABS: Color, Urine Yellow (Yellow); Glucose, Dipstick Normal (Normal); Ketone-Dipstick Negative (Negative); Leukocyte Esterase-Dipstick 25 /ul (Negative); Nitrite-Dipstick Negative (Negative); Occult Blood-Urine Negative /ul (Negative); Protein-Dipstick 15 mg/dl (Negative); Specific Gravity, Urine 1.015 (1.002-1.030); Urine Bilirubin Dipstick Negative (Negative); Urine Clarity Clear (Clear); Urine Urobilinogen 1 mg/dl (Normal)
[2025-01-27 19:00] VITALS: BP 129/75; PULSE 82; RESP 12; O2SAT 98
[2025-01-27 19:50] LABS: Red Blood Cells-Urine 0-5 SEEN /hpf (0-5); White Blood Cells 0-5 SEEN /hpf (0-5)
[2025-01-27 19:51] LABS: Squamous Epithelial Cells - UA 0-5 SEEN /hpf (5-10)
== END 2025-01-27 20:40 | disposition home or self-care (01) ==
PROVIDERS: Emergency Provider Surgery; PCP Family Medicine; Visit Provider Surgery
DX: R10.13 Epigastric pain (principal); R91.8 Other nonspecific abnormal finding of lung field; F17.210 Nicotine dependence, cigarettes, uncomplicated; Z90.49 Acquired absence of other specified parts of digestive tract; Z87.19 Personal history of other diseases of the digestive system
CPT/HCPCS: 74177; 80053; 81001; 83690; 84703; 85025; 96365; 99283; Q9967; A4216

== ENCOUNTER → 2025-06-08 | Outpatient (CLI) | payer OTHER, SELFPAY ==
[2025-06-08 17:43] LABS: Hematocrit 44.0 % (37-47); Hemoglobin 15.0 g/dL (12.0-15.0); Immature Granulocytes Count 0.050 X10^3/uL (0.0-0.0); Mean Corp Hgb Conc 34.1 g/dL (32-36); Mean Corpuscular Volume 91.9 fL (81-99); Mean Platelet Vol. 10.8 fl (6.2-12.0); NRBC Flagged by Analyzer 0 % (0-5); Platelet Count 346 K/mm3 (150-450); RBC Distribution Width CV 13.3 % (11.6-14.6); RBC Distribution Width SD 45.6 fl (35.1-43.9); Red Blood Count 4.79 M/mm3 (4.2-5.4); White Blood Count 14.2 K/mm3 (4.4-11.0)
[2025-06-08 18:12] LABS: AST(SGOT) 13 U/L (<=31); Alanine Aminotransfer ALT/SGPT 9 U/L (<=34); Albumin, Serum 4.5 g/dL (3.5-5.0); Alkaline Phosphatase 80 U/L (35-104); Anion Gap 10 (5-15); BUN 13 mg/dL (4-19); BUN/Creat Ratio 18.3 RATIO (10-20); Calcium,Total 9.5 mg/dL (7.6-11.0); Carbon Dioxide 25.8 mmol/L (21.0-32.0); Chloride 103 mmol/L (98-108); Cholesterol 220 mg/dL (<=200); Globulin 2.6 g/dL (2.2-4.2); Glucose 79 mg/dL (70-99); Low Density Lipoprotein Calc. 152 mg/dL; Potassium 4.7 mmol/L (3.3-5.1); Triglycerides 102 mg/dL; Very Low Density Lipoprotein 20 mg/dL (5-40); cholesterol:hdl ratio screen 4.43
== END | disposition home or self-care (01) ==
LOC: MTLAB 16:31
PROVIDERS: PCP Family Medicine; Referring Provider Nurse Practitioner Family; Visit Provider Nurse Practitioner Family
DX: Z00.01 Encounter for general adult medical examination with abnormal findings (principal)
CPT/HCPCS: 36415; 80053; 80061; 85025

== ENCOUNTER → 2025-07-12 | Outpatient (CLI) | payer OTHER, SELFPAY ==
--- NOTE | 2025-07-12 16:53 | CT_ITS ---
PROCEDURE: CHEST WITH CONTRAST 07/12/2025 REASON FOR EXAM: ASSESS FOR CHANGES TO PULMONARY NODULES SEEN ON 01/2025 SCAN TECHNIQUE: Procedure Code: CTCHW Modality: CT Procedure: CHEST WITH CONTRAST Coronal and Sagittal reconstruction series were provided. CONTRAST: Isovue 370 VOLUME: 100 mL One or more dose reduction techniques were used (e.g., Automated exposure control, adjustment of the mA and/or kV according to patient size, use of iterative reconstruction technique). RADIATION DOSE SUMMARY: CTDlvol: 14.53 mGy DLP: 523.49 mGycm COMPARISON: CT abdomen pelvis dated 01/27/2025 FINDINGS: Hardware: None Lymph nodes: No mediastinal hilar or axillary lymphadenopathy. Heart and Vasculature: Normal heart size. No pericardial effusion. Thoracic aorta and pulmonary arteries are unremarkable. Lungs and Airways: The lungs are normally expanded and clear. No septal thickening nodules or abnormal pulmonary opacities. The previously identified tiny nodularities in the bilateral lung bases are no longer visualized. Pleura: No pleural effusion or pneumothorax. Upper Abdomen: Small indeterminate enhancing lesions are noted within the spleen favoring hemangioma, however, difficult to evaluate on single phase imaging. Bones: Degenerative changes of the thoracic spine. CT/Chest WITH Contrast IMPRESSION: The previously identified tiny nodularities in the bilateral lung bases are no longer visualized. Small indeterminate enhancing lesions are noted within the spleen favoring kimberly ngioma, however, difficult to evaluate on single phase imaging. Recommend MRI of the abdomen with contrast. Reading Location: [facility]
== END | disposition home or self-care (01) ==
LOC: CT 16:50
PROVIDERS: PCP Family Medicine; Referring Provider Nurse Practitioner Family; Visit Provider Nurse Practitioner Family
DX: R91.8 Other nonspecific abnormal finding of lung field (principal)
CPT/HCPCS: 71260; Q9967

== ENCOUNTER 2025-07-26 08:21 | Day surgery (SDC) | payer OTHER, SELFPAY ==
[2025-07-26] VITALS (7 sets, daily range): BP systolic 116–133; BP diastolic 76–92; PULSE 81–91; RESP 16; TEMP 36.3–36.7; O2SAT 97–100; BMI 32.4
--- NOTE | 2025-07-26 08:32 | PCM.PRE.AN2 ---
ASA Classification* ASA Classification ASA Classification: 2 Assessment & Plan Anesthesia* Anesthesia Assessment Anesthesia Assessment: Discussed sedation and/or anesthesia options, risks, benefits, and alternatives with patient/parents/legal guardian/POA. Questions invited. The patient/parents/legal guardian/POA seems to understand and agrees to proceed with anesthesia plan. Reviewed the physical assessment, medical history, allergy history and patient home medications list prior to surgery/procedure/anesthetic and documented any changes. Performed airway and anesthesia risk assessments. Anesthesia Type Anesthesia Type: MAC Anesthesia Focused Assessment* Airway Assessment Mouth opens: >3 cm Mallampati Score: II Labs Anesthesia Preop lab: CBC WBC, (4.4-11.0) 14.2 K/mm3 H 06/08/25, 16:38 RBC, (4.2-5.4) 4.79 M/mm3 06/08/25, 16:38 Hgb, (12.0-15.0) 15.0 g/dL 06/08/25, 16:38 Hct, (37-47) 44.0 % 06/08/25, 16:38 Plt Count, (150-450) 346 K/mm3 06/08/25, 16:38 CHEMISTRY Potassium, (3.3-5.1) 4.7 mmol/L 06/08/25, 16:38 Sodium, (133-145) 138 mmol/L 06/08/25, 16:38 BUN, (4-19) 13 mg/dL 06/08/25, 16:38 Creatinine, (0.70-1.20) 0.73 mg/dL 06/08/25, 16:38 Glucose, (70-99) 79 mg/dL 06/08/25, 16:38 COAG Urine Test Negative Negative 09/10/19, 15:30 Pre-Assessment Diagnosis/Proposed Procedure Planned Operative Procedure(s): CSCOPE OA Anesthesia History 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 When Was Last Pacemaker Check QUESTION #4 FULL TEXT: You/Your Family Experience fever (hyperthermia) with Anesthesia Last Oral Intake Last Oral intake: Last Oral Intake NPO since Meds taken in AM with sips of water? Meds patient instructed to take am of surgery PONV PONV - mechanical design drafter: PONV - mechanical design drafter Female Yes 07/21/25 16:16 HX of Motion Sickness Yes 07/21/25 16:16 HX of N/V After Surgery No 07/21/25 16:16 Non-Smoker No 07/21/25 16:16 Duration of Surgery greater No 07/21/25 16:16 than 60 minutes Number of Risk Factors 2 07/21/25 16:16 PONV Score Moderate Risk 07/21/25 16:16 Height & Weight Height & Weight: Anesthesia: Height & Weight Height 5 ft 5 in 06/03/25 15:26 Respiratory Assessment Respiratory Assessment - mechanical design drafter: Respiratory Tract Infection Hx - mechanical design drafter Hx Respiratory Tract Infection No 07/21/25 16:16 STOP Sleep Apnea STOP Sleep Apnea - mechanical design drafter: STOP Sleep Apnea - mechanical design drafter Hx Hypertension No 07/21/25 16:16 Hx Sleep Apnea No 07/21/25 16:16 CPAP BIPAP Do you snore loudly (louder No 07/21/25 16:16 than talking or can be heard Do you often feel tired/ Yes 07/21/25 16:16 fatigued/ sleepy during daytime? Has anyone observed you stop No 07/21/25 16:16 breathing during sleep? STOP Results Negative 07/21/25 16:16 QUESTION #5 FULL TEXT : Do you snore loudly (louder than talking or can be heard through closed doors)? 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 Specify any problems Hx of Preganancy in last 3 No 07/21/25 16:16 Months Nurse Filling Out Transfusion DSCHRIBER 07/21/25 16:16 & Questions: Date: 07/21/25 07/21/25 16:16 Time: 16:19 07/21/25 16:16 Patient unable to answer at this time (ie. confused, unrespo /Reproduction History /Reproductive History - mechanical design drafter: /Reproductive Hx- mechanical design drafter Hx Now No 07/21/25 16:16 Gestational Age (in weeks): EDC: Hx Hx Para Hx Section SAB No 07/21/25 16:16 Does the father of the baby or his family experience fever w Father of the baby Malignant Hypertension history [facility] History Loss of hearing Wears glasses PTSD (post-traumatic stress disorder) Depression Anxiety Arthritis Back pain Migraine headache Gastric reflux Shortness of breath on exertion Leg cramps Smoker Hx of ulcerative colitis History of drainage of abscess IBS (irritable bowel syndrome) Endometrial polyp Home Medications ?Medication ?Instructions ?Recorded ?Last Taken ?Type venlafaxine 150 mg 215 mg PO DAILY depresion 09/04/19 04/23/24 History capsule,extended release 24 hr epinephrine 0.3 mg/0.3 mL 0.3 mg (0.3 mL) IM X1 #2 ea 04/23/24 Unknown Rx injection, auto-injector (EpiPen 2-Daniel) lorazepam 0.5 mg tablet 0.5 mg PO QDAY PRN anxiety 01/13/25 Unknown History risankizumab-rzaa 150 mg/mL 150 mg subcut .[id number] 01/13/25 Unknown History subcutaneous pen injector (Skyrizi) buspirone 7.5 mg tablet 7.5 mg PO BID #180 tabs 03/03/25 Unknown Rx prasterone (DHEA) 25 mg tablet 25 mg PO DAILY 07/21/25 Unknown History (DHEA) progesterone micronized 200 mg 200 mg PO QHS 07/21/25 Unknown History capsule Allergy/AdvReac Type Severity Reaction Status Date / Time bee venom protein (honey Allergy Severe Swelling Verified 07/21/25 16:13 bee) (bee sting) Penicillins (PCN) Allergy Mild Hives Verified 07/21/25 16:13 latex Allergy Rash Verified 07/21/25 16:13 sulfamethoxazole (From Allergy Rash Verified 07/21/25 16:13 Bactrim) trimethoprim (From Bactrim) Allergy Rash Verified 07/21/25 16:13 citalopram AdvReac Unknown Verified 07/21/25 16:13 Surgical History History of hysteroscopy History of tubal ligation History of colonoscopy History of breast biopsy History of appendectomy Social History Smoking Status: Current every day smoker tobacco type: cigarettes Review of Systems (Anesthesia) ROS Narrative System reviewed and no additional complaints, except as documented.
[2025-07-26] MEDS: Lactated Ringers 1,000 ML 15 ML IV (08:50)
--- NOTE | 2025-07-26 09:15 | COLBX_PTH ---
PATIENT: PING HALL LOC: EN U#:[id number] AGE/SX: 50/F ROOM: RE07/26/[address]: Dr. Jason Oro DO : 1975 BED: DIS: 07/26/2025 SPEC #: [id number] RECD: 07/26/25 13:10 STATUS: CORAL REAbbey #: [id number] JAYMIE: 07/26/25 09:[address]: Jason Oro DEPT: SURGICAL PATHOLOGY RECD BY: Fly Hernandez ENTERED: 07/26/25 14:53 SP TYPE: COLON BX OT DR: Dr. Stephen Lucero DO Tissues: A - COLON BIOPSY Procedures: Surgery Specimen Level IV HEADER OPERATION: Colonoscopy PRE-OP DIAGNOSIS: Screening TISSUE SUBMITTED: A- Hepatic flexure polyp biopsy MICROSCOPIC DIAGNOSIS A. Colon, hepatic flexure, polyp, biopsy: - Hyperplastic polyp (deeper sections examined). MICROSCOPIC DESCRIPTION Slides are reviewed. GROSS DESCRIPTION A. Received in fixative is one container labeled with the patient's name and designated Hepatic flexure polyp biopsy. The specimen consists of one irregular fragment of ponce tissue that measures 0.3 cm. The specimen is totally submitted in one cassette. AK 07/26/2025 CPT:29958
--- NOTE | 2025-07-26 09:29 | PCM.HP.STD ---
HPI - General General Date of Admission: 07/26/25 Date of Service: 07/26/25 Chief Complaint: Screening colonoscopy HPI Narrative PING HALL, is a 50 F who presents [for screening colonoscopy. She is never a colonoscopy in the past. She denied abdominal pain, cramping, chest pain or shortness of breath. Overall she is in very good health.] [facility] Medical History Loss of hearing Wears glasses PTSD (post-traumatic stress disorder) Depression Anxiety Arthritis Back pain Migraine headache Gastric reflux Shortness of breath on exertion Leg cramps Smoker Hx of ulcerative colitis History of drainage of abscess IBS (irritable bowel syndrome) Endometrial polyp Home Medications ?Medication ?Instructions ?Recorded ?Last Taken ?Type venlafaxine 150 mg 215 mg PO DAILY depresion 09/04/19 07/26/25 05:30 History capsule,extended release 24 hr epinephrine 0.3 mg/0.3 mL 0.3 mg (0.3 mL) IM X1 #2 ea 04/23/24 Unknown Rx injection, auto-injector (EpiPen 2-Daniel) lorazepam 0.5 mg tablet 0.5 mg PO QDAY PRN anxiety 01/13/25 Unknown History risankizumab-rzaa 150 mg/mL 150 mg subcut .[id number] 01/13/25 Unknown History subcutaneous pen injector (Jhonatanyrizi) buspirone 7.5 mg tablet 7.5 mg PO BID #180 tabs 03/03/25 07/26/25 05:30 Rx prasterone (DHEA) 25 mg tablet 25 mg PO DAILY 07/21/25 Unknown History (DHEA) progesterone micronized 200 mg 200 mg PO QHS 07/21/25 Unknown History capsule omeprazole 20 mg capsule,delayed 20 mg PO DAILY 07/26/25 07/26/25 05:30 History release Allergy/AdvReac Type Severity Reaction Status Date / Time bee venom protein (honey Allergy Severe Swelling Verified 07/21/25 16:13 bee) (bee sting) Penicillins (PCN) Allergy Mild Hives Verified 07/21/25 16:13 latex Allergy Rash Verified 07/21/25 16:13 sulfamethoxazole (From Allergy Rash Verified 07/21/25 16:13 Bactrim) trimethoprim (From Bactrim) Allergy Rash Verified 07/21/25 16:13 citalopram AdvReac Unknown Verified 07/21/25 16:13 Surgical History History of hysteroscopy History of tubal ligation History of colonoscopy History of breast biopsy History of appendectomy Social History Smoking Status: Current every day smoker tobacco type: cigarettes ROS Constitutional Constitutional: Denies fatigue, fever(s), poor appetite, weight gain or weight loss Gastrointestinal Gastrointestinal: Denies belching, bloating, change in bowel habits, change in stool character, chewing difficulty, coffee ground emesis, constipation, cramping, diarrhea, dyspepsia, dysphagia, early satiety, excessive flatus, fecal incontinence, heartburn, hematemesis, hematochezia, hemorrhoids, loose stools, melena, nausea, odynophagia, rectal bleeding, tenesmus, vomiting or weight changes Patient's Goals Of Care . What would you like to achieve or improve as a result of your hospital stay?: none Vital Signs Vital Signs Vital Signs: 07/26/25 08:42 07/26/25 08:42 07/26/25 08:42 Temperature 98.0 F Temperature Source Temporal Pulse Rate 91 Respiratory Rate 16 Respiratory Pattern Normal Blood Pressure 133/88 H Blood Pressure Mean 103 Blood Pressure Source Monitor Blood Pressure Position Semi-Fowlers Blood Pressure Location Left Arm Baseline BP 133/88 Pulse Ox 97 Oxygen Delivery Method Room Air Weight Weight: 194 lb 14.218 oz Body Mass Index (BMI) 32.4 Physical Exam Const alert, oriented x3, no apparent distress and healthy appearing General Appearance: cooperative GI normal to inspection, nondistended, normoactive bowel sounds, soft to palpation, non-tender and non-distended Percussion: normal to percussion Rectal Exam: deferred Assessment & Plan Assessment/Plan (1) Encounter for screening colonoscopy: PLAN: She was explained alternatives, risk and benefits include not withstanding bleeding, fracture, steps, perforation, need for urgent . She will have an ASA of 3.
--- NOTE | 2025-07-26 10:01 | OP.COLON_ITS ---
Patient Name: Zakia Payne Procedure Date: 07/26/2025 9:32 AM Date of : 1975 Age: 50 Procedure: Colonoscopy Indications: Screening for colorectal malignant neoplasm Providers: Jason Oro DO Referring MD: Stephen Lucero Medicines: Monitored Anesthesia Care Patient Profile: This is a 50 year old female. Refer to note in patient chart for documentation of history and physical. Last Colonoscopy: several years ago. Complications: No immediate complications. Procedure: Pre-Anesthesia Assessment: - Prior to the procedure, a History and Physical was performed, and patient medications and allergies were reviewed. The patient is competent. The risks and benefits of the procedure and the sedation options and risks were discussed with the patient. All questions were answered and informed consent was obtained. Patient identification and proposed procedure were verified by the physician in the pre-procedure area. Mental Status Examination: alert and oriented. Airway Examination: normal oropharyngeal airway and neck mobility. Respiratory Examination: clear to auscultation. CV Examination: normal. Prophylactic Antibiotics: The patient does not require prophylactic antibiotics. Prior Anticoagulants: The patient has taken no anticoagulant or antiplatelet agents except for NSAID medication. ASA Grade Assessment: II - A patient with mild systemic disease. After reviewing the risks and benefits, the patient was deemed in satisfactory condition to undergo the procedure. The anesthesia plan was to use monitored anesthesia care (MAC). Immediately prior to administration of medications, the patient was re-assessed for adequacy to receive sedatives. The heart rate, respiratory rate, oxygen saturations, blood pressure, adequacy of pulmonary ventilation, and response to care were monitored throughout the procedure. The physical status of the patient was re-assessed after the procedure. After I obtained informed consent, the scope was passed under direct vision. Throughout the procedure, the patient's blood pressure, pulse, and oxygen saturations were monitored continuously. The Colonoscope was introduced through the anus and advanced to the cecum, identified by the appendiceal orifice, ileocecal valve and palpation. The colonoscopy was performed without difficulty. The patient tolerated the procedure well. The quality of the bowel preparation was adequate. The ileocecal valve, appendiceal orifice, and rectum were photographed. Scope In: 9:41:40 AM Scope Withdrawal Time 0 hours 4 minutes 54 seconds Scope Out: 9:57:35 AM Total Procedure Duration Time 0 hours 15 minutes 55 seconds Findings: The perianal and digital rectal examinations were normal. A 5 mm polyp was found in the hepatic flexure. The polyp was sessile. The polyp was removed with a jumbo cold forceps. Resection and retrieval were complete. Verification of patient identification for the specimen was done. Estimated blood loss was minimal. A few small-mouthed diverticula were found in the recto-sigmoid colon and sigmoid colon. The exam was otherwise without abnormality on direct and retroflexion views. The entire examined colon appeared normal. Stool was found in the sigmoid colon and in the transverse colon. Impression: - One 5 mm polyp at the hepatic flexure, removed with a jumbo cold forceps. Resected and retrieved. - Diverticulosis in the recto-sigmoid colon and in the sigmoid colon. - The examination was otherwise normal on direct and retroflexion views. Recommendation: - Discharge patient to home. - Resume previous diet. - Continue present medications. - Await pathology results. - Repeat colonoscopy in 5 years for surveillance. Procedure Code(s): --- Professional --- 65290, Colonoscopy, flexible; with biopsy, single or multiple CPT copyright 2021 [employer]. All rights reserved. The codes documented in this report are preliminary and upon director airport operations review may be revised to meet current compliance requirements. Jason Oro DO 07/26/2025 10:01:10 AM This report has been signed electronically. Number of Addenda: 0 Note Initiated On: 07/26/2025 9:32 AM
--- NOTE | 2025-07-26 10:01 | OP.PROVAT_ITS ---
07/26/2025 Stephen Lucero [address] [place] [address] Re : Colonoscopy procedure for Zakia Payne Dear Dr. Lucero This procedure was performed on Saturday, July 26, 2025. My impressions and recommendations are as follows: Impressions : - One 5 mm polyp at the hepatic flexure, removed with a jumbo cold forceps. Resected and retrieved. - Diverticulosis in the recto-sigmoid colon and in the sigmoid colon. - The examination was otherwise normal on direct and retroflexion views. Recommendations : - Discharge patient to home. - Resume previous diet. - Continue present medications. - Await pathology results. - Repeat colonoscopy in 5 years for surveillance. My findings are described in the full procedure note, which is enclosed. If I can be of further assistance, please feel free to contact me at . Sincerely, Jason Oro, 07/26/2025 10:01:10 AM This report has been signed electronically.
--- NOTE | 2025-07-26 10:04 | PCM.POST.ANE ---
Anesthesia: Postop Eval I Current Vital Signs Temperature: 97.4 F Pulse Rate: 86 Blood Pressure: 116/79 Respiratory Rate: 16 Pulse Ox: 99 Oxygen Delivery Method: Room Air Assessment Airway patent: Yes Spontaneous unlabored respirations: Yes Mental status: Awake and Calm nausea: No Vomiting: No Anesthesia Complication: No Fluid Hydration Crystalloid volume administer (ml): 500 Total IV fluid infused: 500 Progress Note Anesthesia document: Postop Eval 1 completed: Yes
--- NOTE | 2025-07-26 10:11 | PCM.POSTANE2 ---
Anesthesia Postop Eval I Sum Postop Eval Completion status Anesthesia document: Postop Eval 1 completed: Yes Anesthesia Postop Eval I Summary Anesthesia Postop Eval I Summary: Anesthesia Postop Eval I: Assessment Summary Airway patent Yes 07/26/25 10:04 [email or web address] Spontaneous unlabored Yes 07/26/25 10:04 [email or web address] respirations Mental status Awake,Calm 07/26/25 10:04 [email or web address] nausea No 07/26/25 10:04 [email or web address] Vomiting No 07/26/25 10:04 [email or web address] Anesthesia Postop Eval I: Fluid Summary Crystalloid volume administer 500 07/26/25 10:04 [email or web address] (ml) Colloids volume administered ( ml) Blood Product volume administered (ml) Total IV fluid infused 500 07/26/25 10:04 [email or web address] Anesthesia Postop Eval I: Summary Notes Anesthesia Complication No 07/26/25 10:04 [email or web address] Anesthesia Complication Comment: Post-operative progress note Anesthesia: Postop Eval II Evaluation Mental status: Awake Pain Level: 0 nausea: No Vomiting: No
== END 2025-07-26 10:49 | disposition home or self-care (01) ==
LOC: EN 08:21 → AC 08:22
PROVIDERS: PCP Family Medicine; Referring Provider Family Medicine; Visit Provider Internal Medicine Gastroenterology
PROC: 0DJD8ZZ Inspection of Lower Intestinal Tract, Via Natural or Artificial Opening Endoscopic (ICD-10-PCS; CPT 45378; principal; 2025-07-26 09:10)
DX: Z12.11 Encounter for screening for malignant neoplasm of colon (principal); K21.9 Gastro-esophageal reflux disease without esophagitis; F43.10 Post-traumatic stress disorder, unspecified; K57.30 Diverticulosis of large intestine without perforation or abscess without bleeding; Z79.899 Other long term (current) drug therapy; F17.210 Nicotine dependence, cigarettes, uncomplicated; K63.5 Polyp of colon
CPT/HCPCS: 45380; 88305; J2405

== ENCOUNTER → 2025-08-02 | Outpatient (CLI) | payer OTHER, SELFPAY ==
--- NOTE | 2025-08-02 10:30 | MRI_ITS ---
PROCEDURE: MRI ABD WITH AND W/O CONTRAST 08/02/2025 REASON FOR EXAM: SPLENOMEGALY, ABN FINDINGS ON DX IMAGING TECHNIQUE: Procedure Code: [id number] Modality: MR Procedure: MRI ABD WITH AND W/O CONTRAST additional MRCP images obtained. Multiplanar and multisequence images were obtained. CONTRAST: Clariscan VOLUME: 19 mL COMPARISON: Previous CT. January 2025. FINDINGS: Liver: In and out of phase images of the liver show no fatty infiltration. No focal mass. No enhancing lesions. Liver of normal-size. Biliary: Normal. No intrahepatic or extrahepatic ductal dilatation. Thin slice MRCP images show normal bile ducts without choledocholithiasis. Pancreas: Negative Spleen: Spleen normal-size without focal lesion. Normal enhancement. Adrenals: In and out of phase images negative. No focal lesions. Kidneys: Negative. Peritoneum / Retroperitoneum: Aorta negative. Lymph Nodes: Negative for retroperitoneal or evidence of intra-abdominal adenopathy. Major Vessels: Normal. Bones: Slight curvature of the lumbar spine with mild degenerative disc disease in the lumbar spine. MRI/MRI Abd WITH and W/O Contrast IMPRESSION: Negative MR of the abdomen without evidence of hepatic or splenomegaly Reading Location: [id number]
== END | disposition home or self-care (01) ==
LOC: MRI 10:28
PROVIDERS: PCP Family Medicine; Referring Provider Nurse Practitioner Family; Visit Provider Nurse Practitioner Family
DX: R16.1 Splenomegaly, not elsewhere classified (principal); R93.5 Abnormal findings on diagnostic imaging of other abdominal regions, including retroperitoneum
CPT/HCPCS: 74183; A9575; A4216